=== PATIENT | male | born 1960 | race Caucasian/White ===

== ENCOUNTER → 2021-01-04 | Day surgery (SDC) | payer OTHER ==
[~2021-01-04] VITALS: Ht 170.2 cm; Wt 68.0 kg
[~2021-01-04] MED LIST: AMLODIPINE BESYL5 MG PO; METOPROLOL SUCC50 MG PO; MYCOPHENOLIC A360 MG PO; PROGRAF1 MG PO
[2021-01-04 08:23] LABS: HCT 43.7 % (42.0-52.0); MCH 31.6 pg (25.0-31.0); MCHC 36.6 g/dL (32.0-36.0); MCV 86.4 fL (78.0-100.0); MPV 10.2 fL (6.0-9.5); RBC 5.06 M/uL (4.70-6.00); RDW 13.1 % (11.5-14.0); WBC 5.2 K/uL (4.0-10.5)
[2021-01-04 08:52] LABS: ALBUMIN 4.1 g/dL (3.4-5.0); BILIRUBIN - TOTAL 1.5 mg/dL (0.2-1.0); BUN/CREAT RATIO (CALC) 15.6 RATIO; CREATININE 1.35 mg/dL (0.67-1.17); POTASSIUM 4.8 mmol/L (3.5-5.1); TOTAL PROTEIN 8.1 g/dL (6.4-8.2)
== END | disposition home or self-care (01) ==
LOC: FAS 12-29 09:00
PROVIDERS: Surgery
DX: K64.8 Other hemorrhoids (principal); K58.9 Irritable bowel syndrome, unspecified; I10 Essential (primary) hypertension; Z87.891 Personal history of nicotine dependence; Z94.0 Kidney transplant status; Z79.899 Other long term (current) drug therapy
CPT/HCPCS: 36415; 80053; J1100; J2250; J2704; J7120